=== PATIENT | male | born 1985 | race Two or more races ===

== ENCOUNTER → 2018-12-13 | Outpatient (CLI) | payer MEDICAID | LOC: EMCIMAGING 09:22 | PROVIDERS: ATTEND Family Medicine | DX: R51 Headache (principal); R53.83 Other fatigue | CPT/HCPCS: 70553-PN ==

== ENCOUNTER → 2019-03-11 | Outpatient (CLI) | payer MEDICAID | LOC: CIMAGING 10:04 ==